=== PATIENT | female | born 1980 | race Caucasian/White ===

== ENCOUNTER 2017-03-18 12:25 | Day surgery (SDC) | payer OTHER ==
[~2017-03-18] VITALS: Ht 170.2 cm; Wt 77.7 kg
[2017-03-18] VITALS (22 sets, daily range): BP systolic 78–119; BP diastolic 51–71; PULSE 56–82; RESP 16–18; Ht 170.2 cm; Wt 77.7 kg
[~2017-03-18 12:25] MED LIST: FERR240T9 PO; PREN-39 PO
[2017-03-18] MEDS ORDERED: MEPERIDINE 25 MG INJ IV PRN (14:30)
[2017-03-18] MEDS ORDERED: DIPHENHYDRAMINE 50 MG INJ IV PRN (14:30)
[2017-03-18] MEDS ORDERED: ONDANSETRON 4 MG INJ IV PRN (14:30)
[2017-03-18] MEDS ORDERED: METOCLOPRAMIDE 10 MG INJ IV PRN (14:30)
[2017-03-18] MEDS ORDERED: HYDROmorphONE (0.2 MG/ML) 10ML SYG IV PRN ×3 (14:30)
[2017-03-18] MEDS ORDERED: FENTAnyl 50 MCG/ML VIAL IV PRN ×2 (14:30)
[2017-03-18] MEDS ORDERED: THROMBIN 5000 UNIT VIAL ONE (14:35)
[2017-03-18] MEDS ORDERED: BACITRACIN/POLYMYXIN 28.35 GM OINT TOP ONE (14:35)
[2017-03-18] MEDS ORDERED: POLYMYXIN/BACITRACIN 1L IRRIG ONE (14:35)
[2017-03-18] MEDS ORDERED: ROPIVACAINE 0.5 % 30 ML VIAL ONE ×2 (14:35→15:22)
[2017-03-18] MEDS ORDERED: CA CHLORIDE 10% 10 ML SYRINGE ONE (14:35)
--- NOTE | 2017-03-18 14:59 | HPN ---
Date/Time of Note Date/Time of Note DATE: 03/18/17 TIME: 14:59 Interval H&P Admission Note Pt. seen H&P reviewed: No system changes ÁLVARO JACKMAN MD Mar 18, 2017 14:59
[2017-03-18] MEDS ORDERED: morphine 2 MG INJ IV PRN (15:00)
[2017-03-18] MEDS ORDERED: MIDAZOLAM 1 MG/ML 2 ML INJ ONE (15:21)
[2017-03-18] MEDS ORDERED: FENTAnyl 50 MCG/ML VIAL ONE ×3 (15:22→17:18)
[2017-03-18] MEDS ORDERED: ROCURONIUM 50 MG INJ ONE (15:27)
[2017-03-18] MEDS ORDERED: SUGAMMADEX SODIUM 200 MG/2 ML VIAL IV ONE (17:06)
[2017-03-18] MEDS ORDERED: CEFAZOLIN 1 GM INJ ONE (17:06)
[2017-03-18] MEDS ORDERED: PROPOFOL 20 ML ONE (17:06)
[2017-03-18] MEDS ORDERED: SUCCINYLCHOLINE CHLORIDE 100 MG/5 ML SYG IV ONE (17:06)
[2017-03-18] MEDS ORDERED: LIDOCAINE 2% (SDV) 5 ML INJ ONE (17:06)
--- NOTE | 2017-03-18 17:29 | OPR ---
Date/Time of Note Date/Time of Note DATE: 03/18/17 TIME: 17:26 Operative Report Procedure Date: Mar 18, 2017 Preoperative Diagnosis Right foot posterior tibial tenoditis Right foot posterior tibial tendon partial split tear Postoperative Diagnosis Right foot posterior tibial tenoditis Right foot posterior tibial tendon partial split tear Operation/Procedure Performed Right foot posterior tibial tenosynovectomy Right foot posterior tibial tendon partial split tear repair Application of Platelet Rich Plasma to the Right Posterior tibial Tendon (spun at 7% Hct) Surgeon Selvin Jackman MD Oil Separator none Anesthesia Type: general, other (popliteal, adductor) Anesthesiologist: JESENIA ORTIZ Tourniquet Time: 55 min at 250 mm HG Estimated Blood Loss: minimal Transfusion none Specimen none Grafts/Implants none Complications none Pt Condition Post Procedure: stable Disposition: PACU Indications Patient is a 36 year old female who has sustained a traumatic posterior tibial tendon tear approximately 8 months ago, now with worsening pain and swelling that did not resolve with non operative treatment including boot and NSAIDs. MRI confirms the tear Risk Note: Patient was explained the risks and benefits of surgery and the patient's mentasta language including not limited to infection, bleeding, injury to blood vessels, nerves, ligaments or tendons. Risks of anesthesia, deep vein thrombosis and need for reduce future surgery. Patient acknowledged these risk by signing the surgical consent form. Procedure Description Patient was met in the preoperative holding area and operative extremity was confirmed with the patient and consent. The operative cavity was then correctly marked accordingly. Patient was then given preoperative regional block anesthesia and preoperative antibiotics. Patient was then brought back to the operative theater and placed supine on operative table. Patient was then given general anesthesia and patient was then prepped and draped in normal sterile fashion. A timeout was taken and all parties in the room agreed as the correct patient, extremity and procedure. Tourniquet was brought to 250 mmHg incision was made from the tip of the medial malleolus to the navicular. The posterior tibial tendon was delicately exposed with care to avoid any injury to the neurovascular structures. The surrounding posterior tibial tendon sheath was then incised delicately. And the posterior tibial tendon was exposed. There is approximately a 3 cm partial thickness tear there was a split tear type of the posterior tibial tendon. There is also extensive tenosynovitis of the synovial sheath. The synovitis was extensively debrided. And the posterior tibial tendon was debrided at the insertion site and then just proximal to the insertion to debrided the tendon of all inflamed tissue. The tendon was then repaired with 3-0 Vicryl in an inverted fashion so that the knot was on the inside part of the tendon. The wounds were then irrigated thoroughly and then the tendon sheath was then repaired with 3-0 Vicryl as well. Platelet rich plasma that had been spun at 6% hematocrit was then inserted and previously mixed with calcium chloride to create a gelatinous material that sat over the repair site. The remaining incision was then repaired with 3-0 Monocryl followed by 4-0 Monocryl in a running fashion. The wound was then dressed with Steri-Strips Xeroform 4 x 4's and had been soaked in platelet poor plasma and then 5 ABDs and Webrils and the patient was placed in a well-padded short leg splint with the foot slightly inverted to allow for the tendon to heal properly. At the end the case all sponge needle counts were correct and patient was taken to the PACU in stable condition. Patient remain nonweightbearing until I see her the first postoperative visit. SELVIN JACKMAN MD Mar 18, 2017 17:29
[2017-03-18] MEDS ORDERED: oxyCODONE 5 MG TAB PO ONE (18:30)
== END 2017-03-18 21:15 | disposition home or self-care (01) ==
LOC: SDS 12:25 → SUR 12:25
PROVIDERS: ATTEND Orthopaedic Surgery
DX: M76.821 Posterior tibial tendinitis, right leg (principal); S86.111A Strain of other muscle(s) and tendon(s) of posterior muscle group at lower leg level, right leg, initial encounter; X58.XXXA Exposure to other specified factors, initial encounter; M65.871 Other synovitis and tenosynovitis, right ankle and foot
CPT/HCPCS: 28086; 28200; 82306; 84703; J0690; J1170; J2250; J2765; J2795; J3010; Z7512; Z7610